=== PATIENT | male | born 1955 | race African-American/Black ===

== ENCOUNTER 2019-04-28 23:21 | Inpatient (IN) | payer OTHER ==
--- NOTE | 2019-04-29 02:17 | PDOC.FPRHP ---
- History of Present Illness Chief Complaint: Fever, Cough History of Present Illness: Pt is a 63 yo male with PMH significant for DM II, HTN, Hep C, Dementia, PEG tube placement who presented from the senior living for fever x 1 day and cough for a few days. Pt is unable to provide any information, AAO x 1. Discussing with the nurse it appears he had this cough which was mild in nature since admission to floor. He did have a temp of 102. Otherwise pt denies pain, shortness of breath. ED Course: In the ED pt was given levaquin, cefepime, NS, ibuprofen and tested for COVID-19 - Allergies/Adverse Reactions Allergies Allergy/AdvReac Type Severity Reaction Status Date / Time No Known Drug Allergies Allergy Unverified 12/31/12 09:19 - Home Medications Medication Instructions Recorded Confirmed Type Acetaminophen [Tylenol Elixir] 650 mg PER TUBE Q6HR PRN 04/29/19 04/29/19 History Phenytoin 125 mg PER TUBE DAILY 04/29/19 04/29/19 History Ranitidine HCl [Ranitidine HCl 150 mg PER TUBE BID 04/29/19 04/29/19 History Syrup] levETIRAcetam [Keppra Oral 750 mg PER TUBE DAILY 04/29/19 04/29/19 History Solution] metFORMIN HCl [Metformin HCl] 1,000 mg PER TUBE DAILY 04/29/19 04/29/19 History - History PMHx: DM II, HTN, HEP C, Dementia, Seizures, CAD, PEG tube placement PSHx: PEG tube FHx: unable to provide information Social: lives at a senior living - Review of Systems ROS unobtainable: due to mental status - Vital signs BP: 158/87 HR: 98 RR: 22 Tmax: 99.5 Pox: 97% on RA Wt:64 kg - Physical Exam Constitutional: NAD -Constitutional: awake HEENT: PERRLA, EOMI Neck: FROM, no JVD Chest: no-tender to palpation, no lesions Heart: RRR, normal S1/S2, no edema -Lungs: unable to perform a good exam due to lack of ability to take commands by pt Abdomen: soft, non-tender, no masses/distention -Musculoskeletal: contractures in LE Neurological: no focal deficit, CN II-XII intact Skin: capillary refill <2 seconds, no jaundice Heme/Lymphatic: no purpura, no petechia -Psychiatric: AAO X 1 - person FMR H&P: Results - Radiology Interpretation Chest x-ray Status: image reviewed by me, report reviewed by me Additional comment: LLL effusion and infiltration vs atelectasis FMR H&P: A/P - Problem List (1) DM II (diabetes mellitus, type II), controlled Current Visit: Yes Status: Acute Code(s): E11.9 - TYPE 2 DIABETES MELLITUS WITHOUT COMPLICATIONS (2) HTN (hypertension) Current Visit: Yes Status: Acute Code(s): I10 - ESSENTIAL (PRIMARY) HYPERTENSION (3) Hepatitis C Current Visit: Yes Status: Acute Code(s): B19.20 - UNSPECIFIED VIRAL HEPATITIS C WITHOUT HEPATIC COMA (4) Dementia Current Visit: Yes Status: Acute Code(s): F03.90 - UNSPECIFIED DEMENTIA WITHOUT BEHAVIORAL DISTURBANCE (5) Seizure Current Visit: Yes Status: Acute Code(s): R56.9 - UNSPECIFIED CONVULSIONS (6) CAD (coronary artery disease) Current Visit: Yes Status: Acute Code(s): I25.10 - ATHSCL HEART DISEASE OF [place] CORONARY ARTERY W/O ANG PCTRS (7) Pneumonia Current Visit: Yes Status: Acute Code(s): J18.9 - PNEUMONIA, UNSPECIFIED ORGANISM (8) Urinary tract infection Current Visit: Yes Status: Acute - Plan # LLL Pneumonia - RVP pending - COVID-19 pending - d/c cefepime, levaquin from ED; started ceftriaxone, azithromycin - procalcitonin pending - influenza negative - temp 102 - droplet precaution # Urinary tract infection - ceftriaxone # DM II - continue home meds # Epilepsy - continue home meds # PEG Tube - rehab technician consulted - takes glucerna 1.5 @ 70 ml/hr, 18 hr/day # CAD - stable # Dementia - AAO X 1, pt is full code # Hx of Hep C # HTN - stable VTE: Lovenox Code: Full Dispo: Admit to medical inpatient FMR H&P: Upper Level - Pertinent history 63 year old [place] patient presents with a one week history of cough and fever to 102F documented at facility yesterday. History obtained via [place] notes, ED physician, and floor nurse. Patient A&Ox1 and unable to provide history. Patient appears to be in no acute distress. - Pertinent findings General: Alert and oriented x1 to self. No acute distress. HEENT: Dry MM Card: RRR, no murmur Resp: Very difficult exam due to patient effort, no obvious rhonchi, rales Abdomen: Soft, non-tender, non-distended, PEG tube in LUQ appears clean and dry Ext: No cyanosis or edema - Plan Date/Time: 04/29/19 0217 I, Deepthi Mueller, have evaluated this patient and agree with findings/plan as outlined by sports intern resident. Pertinent changes/additions are listed here. Sepsis 2/2 suspected LLL PNA - Suspected based on CXR findings, cough, and fever - May represent CAP vs. aspiration PNA - Will attempt to contact NH for more information - Procal pending to further evaluate - Concern noted for COVID19 by ED physician, so testing performed - Contact precautions - RVP pending - Will start Azithromycin (04/28) and Ceftriaxone (04/28) for presumptive CAP; tailor antibiotics based on discussion with senior living. - Patient does have PEG tube, so is at increased risk of aspiration, particularly with dysphagia and dementia Possible UTI - UA appears contaminated, will await urine culture - Upon further review of past history, patient has history of previous pseudomonas UTI's (he is not currently being covered for this, will need to reconsider antibiotics pending discussion with NH) Dementia - A&O x1 to self Seizure disorder - Continue anticonvulsants Gastrostomy with PEG tube - Dietary consult for PEG tube feeds DVT PPX: Lovenox Code status: Full Dispo: Admit to medical. Anticipate LOS >48 hours. Addendum - Attending - Attending Attestation Date/Time: 04/29/19 1114 I personally evaluated the patient and discussed the management with Dr. Samson /Ami. I agree with the History, Examination, Assessment and Plan documented above with any addition or exceptions noted below.
[2019-04-29] MEDS ORDERED: Acetaminophen 650 MG/20.3 ML UDCUP PER TUBE PRN (05:35)
[2019-04-29] MEDS ORDERED: cefTRIAXone\\ROCEPHIN 1 GM in Sodium Chloride 0.9% 100 ML IVPB SCH (05:45)
[2019-04-29] MEDS ORDERED: Azithromycin 500 MG in Sodium Chloride 0.9% 250 ML 250 ML IVPB SCH ×2 (06:30→09:00)
[2019-04-29] MEDS: levETIRAcetam 500 mg/5 ml Oral Solution PER TUBE SCH (07:46)
[2019-04-29] MEDS: Enoxaparin Sodium 40 MG/0.4 ML SYRINGE SC SCH (07:47)
[2019-04-29] MEDS: metFORMIN 500 MG TAB PER TUBE SCH (07:47)
[2019-04-29] MEDS: Famotidine 20 MG TAB PER TUBE SCH ×2 (07:48→22:24)
[2019-04-29] MEDS ORDERED: Dextrose 5% in Water 1,000 ML IV PRN (08:56)
[2019-04-29] MEDS ORDERED: Dextrose 50% Abboject 50 ML SYRINGE SLOW IVP PRN (08:56)
[2019-04-29] MEDS ORDERED: FLU VACC QS2019-20(6MOS UP)/PF 60 MCG/0.5 ML SYRINGE IM ONE (09:00)
[2019-04-29] MEDS: Cefepime 2 GM in Sodium Chloride 0.9% 100 ML IVPB SCH ×2 (13:19→22:23)
[2019-04-29] MEDS: HumaLOG 300 UNITS/3 ML VIAL SC PRN (17:05)
[2019-04-30] MEDS: Cefepime 2 GM in Sodium Chloride 0.9% 100 ML IVPB SCH ×3 (05:08→21:45)
--- NOTE | 2019-04-30 06:01 | PDOC.FM ---
- Subjective Subjective: Doing well this morning, A/O x1 but at baseline. No concerns for this morning. States mild dysuria, no resp sxs, no cough, congestion, rhinorrhea, dyspnea. Occasional chills. Tolerating PO well. No acute events overnight per nursing staff. Spoke with PCP at senior living yesterday, pt had 2-3days of worsening mentation, fevers, chills, and decreased activity. No respiratory sxs. Has history of UTI's. Was sent to ED for fever and altered mentation. - Objective MAR Reviewed: Yes Vital Signs & Weight: Vital Signs (12 hours) Temp Pulse Resp BP Pulse Ox 04/30/19 05:38 96 04/29/19 20:00 96 04/29/19 19:04 98.2 F 77 16 95/62 96 Weight Admit Weight 66.423 kg Weight 66.423 kg I&O: 04/28/19 04/29/19 04/30/19 06:59 06:59 06:59 Intake Total 150 Balance 150 Result Diagrams: 04/30/19 08:26 04/30/19 08:26 Phys Exam - Physical Examination Constitutional: NAD (resting comfortably, interacting, converses but unable to answer all questions, A/O x1) HEENT: moist MMs Neck: supple Respiratory: no wheezing, no rales, no rhonchi, clear to auscultation bilateral Cardiovascular: RRR, no significant murmur, no rub Gastrointestinal: soft, non-tender, no distention, positive bowel sounds PEG tube in place, d/c/i Musculoskeletal: no edema Neurological: moves all 4 limbs Deviation from normal: A/O x1, baseline Dx/Plan (1) Urinary tract infection Status: Acute (2) CAD (coronary artery disease) Code(s): I25.10 - ATHSCL HEART DISEASE OF [place] CORONARY ARTERY W/O ANG PCTRS Status: Chronic (3) DM II (diabetes mellitus, type II), controlled Code(s): E11.9 - TYPE 2 DIABETES MELLITUS WITHOUT COMPLICATIONS Status: Chronic (4) Dementia Code(s): F03.90 - UNSPECIFIED DEMENTIA WITHOUT BEHAVIORAL DISTURBANCE Status: Chronic (5) HTN (hypertension) Code(s): I10 - ESSENTIAL (PRIMARY) HYPERTENSION Status: Chronic (6) Hepatitis C Code(s): B19.20 - UNSPECIFIED VIRAL HEPATITIS C WITHOUT HEPATIC COMA Status: Chronic - Plan Plan: 63yo AAM with h/o dementia, Hep C, previous drug abuse, and previous UTI presents for sepsis 2/2 suspected UTI #Sepsis 2/2 suspected UTI - Initial temp 102, tachy. Now VSS. - Initial presentation possible LLL PNA, CXR with effusion on L - spoke with [place] PCP, no respiratory sxs prior to presentation, h/o UTI, this morning, pt states no cough, congestion, dyspnea. VSS, no hypoxia. CXR without lobar consolidation - RVP negative, Flu neg, Procal 0.25 - Very low suspicion for COVID-19, testing pending, precations until results return - UA dirty, previous history of pseudomonas resistant to quinolones UTI. Will cont Cefepime Day 2 and await UCx and BCx - s/p Azithro and Rocephin x1d for CAP - AM labs pending #DM II - continue home meds - hyperglycemic protocol, ACHS accuchecks #Epilepsy - continue home meds #PEG Tube - percussion instrument repairer consulted - takes glucerna 1.5 @ 70 ml/hr, 18 hr/day #CAD - stable #Dementia - AAO X 1, this is baseline per [place], pt is full code #Hx of Hep C and IV drug abuse #HTN - stable PCP: [facility]up[facility] Afshan Code: Full VTE: Lovenox Diet: Tube feeds IVF: SL Dispo: Admitted to medical inpatient for sepsis 2/2 suspected UTI. Low suspicion for COVID 19 or respiratory cause. Awaiting cultures and labs. Anticipate LOS >48hrs and dispo back to [place] when appropriate. Addendum - Attending - Attending Attestation Date/Time: 04/30/19 9820 I personally evaluated the patient and discussed the management with Dr. Gonzáles. I agree with the History, Examination, Assessment and Plan documented above with any addition or exceptions noted below.
[2019-04-30] MEDS: HumaLOG 300 UNITS/3 ML VIAL SC PRN ×4 (07:22→23:05)
[2019-04-30] MEDS: Enoxaparin Sodium 40 MG/0.4 ML SYRINGE SC SCH (07:22)
[2019-04-30] MEDS: Famotidine 20 MG TAB PER TUBE SCH ×2 (07:23→21:45)
[2019-04-30] MEDS: metFORMIN 500 MG TAB PER TUBE SCH ×2 (07:23→15:25)
[2019-04-30 08:43] LABS: #Lymphocytes 1.3 thou/uL (1.20-3.40); #Monocytes 0.6 thou/uL (0.11-0.59); #Neutrophils 4.8 thou/uL (1.40-6.50); %Basophils 0.5 % (0.0-1.0); %Eosinophils 0.7 % (0.0-10.0); %Lymphocytes 19.4 % (21.0-51.0); %Monocytes 8.5 % (0.0-10.0); %Neutrophils 70.9 % (42.0-75.0); Hemoglobin 12.1 g/dL (14.0-18.0); Mean Corpuscular HGB CONC 32.6 g/dL (32.0-36.0); Mean Corpuscular Hemoglobin 30.4 pg (27.0-31.0); Mean Corpuscular Volume 93.2 fL (78.0-98.0); Mean Platelet Volume 10.7 fL (7.4-10.4); Platelet Count 146 thou/uL (130-400); RBC Distribution Width 11.7 % (11.5-14.5); Red Blood Cell (RBC) Count 3.98 mill/uL (4.70-6.10); White Blood Cell (WBC) Count 6.7 thou/uL (4.8-10.8)
[2019-04-30 08:51] LABS: Anion Gap 15 mmol/L (10-20); BUN (Urea Nitrogen) 12 mg/dL (8.4-25.7); Calc. Creatinine Clearance 83 mL/min (70-130); Calcium 9.3 mg/dL (7.8-10.44); Carbon Dioxide 24 mmol/L (23-31); Chloride 98 mmol/L (98-107); Estimated GFR-MDRD Greater than 90; Glucose 344 mg/dL (80-115); Potassium 4.1 mmol/L (3.5-5.1); Sodium 133 mmol/L (136-145)
[2019-04-30] MEDS: levETIRAcetam 500 mg/5 ml Oral Solution PER TUBE SCH (10:10)
[2019-05-01] MEDS: Cefepime 2 GM in Sodium Chloride 0.9% 100 ML IVPB SCH (05:39)
--- NOTE | 2019-05-01 06:22 | PDOC.FM ---
- Subjective Subjective: Doing well this morning, appears at baseline mentation. Lost IV access overnight and unable to re-establish peripheral IV access. No cough, congestion , fever/chills. A/O x 1, at baseline. Answers some but not all questions appropriately. - Objective MAR Reviewed: Yes Vital Signs & Weight: Vital Signs (12 hours) Temp Pulse Resp BP Pulse Ox 04/30/19 20:00 99.3 F 96 18 138/87 95 Weight Admit Weight 66.423 kg Weight 66.423 kg I&O: 04/29/19 04/30/19 05/01/19 06:59 06:59 06:59 Intake Total 150 150 Balance 150 150 Result Diagrams: 04/30/19 08:26 04/30/19 08:26 Phys Exam - Physical Examination Constitutional: NAD (resting comfortably) HEENT: moist MMs Neck: supple Respiratory: no wheezing, no rales, no rhonchi, clear to auscultation bilateral Cardiovascular: RRR, no significant murmur, no rub Gastrointestinal: soft, non-tender, no distention, positive bowel sounds Peg tube in place, clean and dry Musculoskeletal: no edema Neurological: moves all 4 limbs Dx/Plan (1) Urinary tract infection Status: Acute (2) CAD (coronary artery disease) Code(s): I25.10 - ATHSCL HEART DISEASE OF [place] CORONARY ARTERY W/O ANG PCTRS Status: Chronic (3) DM II (diabetes mellitus, type II), controlled Code(s): E11.9 - TYPE 2 DIABETES MELLITUS WITHOUT COMPLICATIONS Status: Chronic (4) Dementia Code(s): F03.90 - UNSPECIFIED DEMENTIA WITHOUT BEHAVIORAL DISTURBANCE Status: Chronic (5) HTN (hypertension) Code(s): I10 - ESSENTIAL (PRIMARY) HYPERTENSION Status: Chronic (6) Hepatitis C Code(s): B19.20 - UNSPECIFIED VIRAL HEPATITIS C WITHOUT HEPATIC COMA Status: Chronic - Plan Plan: 63yo AAM with h/o dementia, Hep C, previous drug abuse, and previous UTI presents for sepsis 2/2 suspected UTI #Sepsis 2/2 complicated UTI - Initial temp 102, tachy. Now VSS. - Initial presentation possible LLL PNA, CXR with effusion on L - spoke with NH PCP, no respiratory sxs prior to presentation, h/o UTI, this morning, pt states no cough, congestion, dyspnea. VSS, no hypoxia. CXR without lobar consolidation. Low suspicion for respiratory illness - s/p Azithro and Rocephin x1d for CAP - RVP negative, Flu neg, Procal 0.25 - Very low suspicion for COVID-19, testing pending, precations until results return - UA dirty, previous history of pseudomonas resistant to quinolones UTI. Will cont Cefepime Day 3 - UCx GNR, BCx NGTD - Will likely need abx x10d for complicated UTI, plan on mid-term IV access for IV abx. #DM II - continue home meds - hyperglycemic protocol, ACHS accuchecks - Hyperglycemic, SS, check A1C and consider basal insulin #Epilepsy - continue home meds #PEG Tube - coin machine operator consulted - takes glucerna 1.5 @ 70 ml/hr, 18 hr/day #CAD - stable #Dementia - AAO X 1, this is baseline per [place], pt is full code #Hx of Hep C and IV drug abuse #HTN - stable PCP: [facility] Afshan Code: Full VTE: Lovenox Diet: Tube feeds IVF: SL Dispo: Admitted to medical inpatient for sepsis 2/2 suspected UTI. Low suspicion for COVID 19 or respiratory cause. Awaiting cultures and labs. Anticipate LOS >48hrs and dispo back to [place] when appropriate. Addendum - Attending - Attending Attestation Date/Time: 05/01/19 1051 I personally evaluated the patient and discussed the management with Dr. Gonzáles. I agree with the History, Examination, Assessment and Plan documented above with any addition or exceptions noted below.
[2019-05-01 07:20] LABS: Hemoglobin A1c 7.4 % (4.0-6.0)
[2019-05-01] MEDS: Famotidine 20 MG TAB PER TUBE SCH ×2 (09:13→21:17)
[2019-05-01] MEDS: Enoxaparin Sodium 40 MG/0.4 ML SYRINGE SC SCH (09:13)
[2019-05-01] MEDS: metFORMIN 500 MG TAB PER TUBE SCH ×2 (09:13→17:28)
[2019-05-01] MEDS ORDERED: Fosfomycin 3 GM/Packet PO SCH (10:00)
[2019-05-01] MEDS: levETIRAcetam 500 mg/5 ml Oral Solution PER TUBE SCH (12:38)
[2019-05-01] MEDS: HumaLOG 300 UNITS/3 ML VIAL SC PRN ×4 (12:53→21:17)
[2019-05-01] MEDS ORDERED: Insulin Glargine 20 UNITS in Pre-Filled Syringe SC SCH (15:15)
--- NOTE | 2019-05-02 06:21 | PDOC.FM ---
- Subjective Subjective: Doing well this morning, no acute events overnight. A/O x1, appears at baseline mentation. Unable to answer specific questions but appears comfortable. No fever /chills, CP, SOB. Tolerating tube feeds well. - Objective MAR Reviewed: Yes Vital Signs & Weight: Vital Signs (12 hours) Temp Pulse Resp BP Pulse Ox 05/01/19 20:00 97 05/01/19 19:43 96.7 F L 95 16 169/92 H 97 Weight Admit Weight 66.423 kg Weight 66.423 kg I&O: 04/30/19 05/01/19 05/02/19 06:59 06:59 06:59 Intake Total 150 150 150 Balance 150 150 150 Result Diagrams: 04/30/19 08:26 04/30/19 08:26 Phys Exam - Physical Examination Constitutional: NAD (resting comfortably, A/O x1 at baseline) HEENT: moist MMs Neck: supple Respiratory: no wheezing, no rales, no rhonchi, clear to auscultation bilateral Cardiovascular: RRR, no significant murmur, no rub Gastrointestinal: soft, no distention, positive bowel sounds Tolerating peg tube feeds well, site clean and dry Musculoskeletal: no edema Dx/Plan (1) Urinary tract infection Status: Acute (2) CAD (coronary artery disease) Code(s): I25.10 - ATHSCL HEART DISEASE OF [place] CORONARY ARTERY W/O ANG PCTRS Status: Chronic (3) DM II (diabetes mellitus, type II), controlled Code(s): E11.9 - TYPE 2 DIABETES MELLITUS WITHOUT COMPLICATIONS Status: Chronic (4) Dementia Code(s): F03.90 - UNSPECIFIED DEMENTIA WITHOUT BEHAVIORAL DISTURBANCE Status: Chronic (5) HTN (hypertension) Code(s): I10 - ESSENTIAL (PRIMARY) HYPERTENSION Status: Chronic (6) Hepatitis C Code(s): B19.20 - UNSPECIFIED VIRAL HEPATITIS C WITHOUT HEPATIC COMA Status: Chronic - Plan Plan: 63yo AAM with h/o dementia, Hep C, previous drug abuse, and previous UTI presents for sepsis 2/2 suspected UTI #Sepsis 2/2 complicated UTI - Initial temp 102, tachy. Now VSS. - Initial presentation possible LLL PNA, CXR with effusion on L - spoke with NH PCP, no respiratory sxs prior to presentation, h/o UTI, pt states no cough, congestion, dyspnea. VSS, no hypoxia. CXR without lobar consolidation. Low suspicion for respiratory illness - s/p Azithro and Rocephin x1d for CAP - RVP negative, Flu neg, Procal 0.25 - Very low suspicion for COVID-19, testing negative. - UA dirty, previous history of pseudomonas resistant to quinolones UTI. s/p Cefepime x3d. Now on fosfomycin x3 doses q72hrs, 2 additional doses - UCx flouroquinoline resistance Pseudomonas, BCx NGTD #DM II - continue home meds - hyperglycemic protocol, ACHS accuchecks - Hyperglycemic, SS, A1C 7 - Records reviewed, and pt on basal insulin at long term, will cont #Epilepsy - continue home meds #PEG Tube - mobile device engineer consulted, apprec recs - takes glucerna 1.5 @ 70 ml/hr, 18 hr/day #CAD - stable #Dementia - AAO X 1, this is baseline per CT, pt is full code #Hx of Hep C and IV drug abuse #HTN - stable PCP: Krup[facility] Afshan Code: Full VTE: Lovenox Diet: Tube feeds IVF: SL Dispo: Admitted to medical inpatient for sepsis 2/2 UTI. COVID 19 negative. Medically stable and ready for discharge back to [place] to finish abx regime. Addendum - Attending - Attending Attestation Date/Time: 05/02/19 6566 I personally evaluated the patient and discussed the management with Dr. Gonzáles. I agree with the History, Examination, Assessment and Plan documented above with any addition or exceptions noted below.
[2019-05-02] MEDS: HumaLOG 300 UNITS/3 ML VIAL SC PRN ×2 (06:40→12:35)
[2019-05-02 07:38] VITALS: TEMP 98.4
[2019-05-02] MEDS ORDERED: hydrALAZINE 20 MG/ML VIAL SLOW IVP PRN (08:38)
[2019-05-02] MEDS ORDERED: hydrALAZINE 20 MG/ML VIAL SLOW IVP SCH (08:45)
[2019-05-02] MEDS: metFORMIN 500 MG TAB PER TUBE SCH (08:54)
[2019-05-02] MEDS: Famotidine 20 MG TAB PER TUBE SCH (08:54)
[2019-05-02] MEDS: Enoxaparin Sodium 40 MG/0.4 ML SYRINGE SC SCH (08:54)
[2019-05-02] MEDS: levETIRAcetam 500 mg/5 ml Oral Solution PER TUBE SCH (08:57)
[2019-05-02 11:32] VITALS: BP 159/70
--- NOTE | 2019-05-02 12:31 | PQF ---
DATE: 05-02-19 ATTN: DR. ALANNA LOBO Please exercise your independent, professional judgment in responding to the clarification form. Clinical indicators are provided on the bottom of this form for your review Please check appropriate box(s) to clarify if the following diagnosis has been ruled in or ruled out: ASPIRATION PNEUMONIA [ ] Ruled in diagnosis [ ] Continue to treat [ ] Resolved [ x ] Ruled out diagnosis [ ] Other diagnosis [ ] Unable to determine In addition, please specify: Present on Admission (POA): [ x ] Yes - on ddx but ruled out [ ] No [ ] Unable to determine For continuity of documentation, please document condition throughout progress notes and discharge summary. Thank You. CLINICAL INDICATORS - SIGNS / SYMPTOMS / LABS / RESULTS AND LOCATION IN MR: H&P 04-29-19: SEPSIS 2/2 SUSPECTED LLL PNA, MAY REPRESENT CAP VS ASPIRATION PNA H&P 04-29-19: FROM NH, PATIENT DOES HAVE PEG TUBE, SO INCREASED RISK OF ASPIRATION, PARTICULARLY WITH DYSPHAGIA AND DEMENTIA RISK FACTORS / RESULTS AND LOCATION IN MR: H&P 04-29-19: FROM NH, PATIENT DOES HAVE PEG TUBE, SO INCREASED RISK OF ASPIRATION, PARTICULARLY WITH DYSPHAGIA AND DEMENTIA TREATMENTS / RESULTS AND LOCATION IN MR: H&P 04-29-19: WILL START AZITHROMYCIN AND CEFTRIAXONE FOR PRESUMPTIVE CAP, TAILOR BASED ON DISCUSSION WITH NH, PATIENT DOES HAVE PEG TUBE, SO INCREASED RISK OF ASPIRATION, PARTICULARLY WITH DYSPHAGIA AND DEMENTIA (This form is maintained as a part of the permanent medical record) 2014 [employer]. All Rights Reserved PUNEET [email or web address] Office: [phone] NATALIA
[2019-05-02] MEDS ORDERED: Pancrelipase DR 12000 1 CAP PER TUBE PRN ×3 (13:54→14:00)
[2019-05-02] MEDS ORDERED: Sodium Bicarbonate Tab 325 MG TAB PER TUBE PRN (13:55)
--- NOTE | 2019-05-02 14:12 | DIS ---
DATE OF ADMISSION: 04/29/2019 DATE OF DISCHARGE: 05/02/2019 RESIDENT: Mansoor Gonzáles MD. ADMITTING ATTENDING: Alec Feldman MD DISCHARGE ATTENDING: Alec Feldman MD. CONSULTS: None. PROCEDURES: 1. Urine culture demonstrating fluoroquinolone resistant Pseudomonas. 2. Blood culture no growth to date. 3. COVID-19 testing negative. 4. Chest x-ray on 04/28/2019, demonstrating left effusion and left basilar atelectasis/infiltrate. PRIMARY DIAGNOSES: Sepsis secondary to complicated urinary tract infection. SECONDARY DIAGNOSES: 1. Insulin-dependent type 2 diabetic. 2. Epilepsy. 3. PEG tube dependent feeding. 4. Coronary artery disease. 5. Dementia. A and O x1 at baseline. 6. History of hep C and IV drug abuse. 7. Hypertension. DISCHARGE MEDICATIONS: 1. Tylenol 650 mg per tube q.6 hours p.r.n. 2. Ranitidine 150 mg per tube b.i.d. 3. Metformin 1 g per tube b.i.d. 4. Fosfomycin 3 g p.o. q.72 hours. Next dose on 05/04/2019, and final dose on 05/07/2019. 5. Phenytoin 125 mg per tube daily. 6. Keppra 750 mg per tube daily. 7. Insulin regimen as previously used at [facility]. HISTORY OF PRESENT ILLNESS AND HOSPITAL COURSE: The patient is a 63-year-old male with past medical history of insulin type 2 diabetes, hypertension, hep C, dementia, and PEG tube placement, who presented from the [facility] for fever x1 day. The patient is A and O x1 at baseline. The patient had a temperature of 102. Otherwise, denies any shortness of breath or chest pain. Per nursing report, the patient may have been having a cough previously. In the emergency department, he was given Levaquin, cefepime, normal saline, ibuprofen and tested for COVID-19. He was admitted to the floor for further evaluation and management. The patient initially met sepsis criteria with a temperature of 102 and tachycardia. His vital signs normalized with the addition of antibiotics and IV fluid hydration. The patient's initial x-ray showed a left lower lobe effusion, possible pneumonia, and report of patient with cough, thus the patient was tested for COVID-19 and placed on the appropriate precautions. Speaking with the [facility] primary care provider, the patient has had no respiratory symptoms prior to presentation. No cough. No congestion, shortness of breath, or hypoxia. The patient had been less interactive and spiking fevers and thus warranted his presentation to the emergency management. The patient has had a history of multiple UTIs in the past of Pseudomonas, fluoroquinolone resistant. The patient had a respiratory viral panel that was negative. Flu is negative. Procalcitonin was 0.25 and ultimately, the COVID-19 testing returned negative. His UA was very dirty and urine culture resulted in fluoroquinolone resistant Pseudomonas. The patient was given cefepime x3 days and transitioned to fosfomycin x3 additional doses q.72 hours with the final dose is due on 05/03 and 05/06. Blood cultures were no growth to date. At the time of discharge, the patient was doing very well and back to his baseline mentation. Discharge plan was discussed with [facility] PCP. The patient is also an insulin-dependent type 2 diabetic. Initial med reconciliation from the [facility] did not include his insulin and thus, the patient was placed on sliding scale. The patient was transitioned back to his home insulin regimen at the time of discharge. The patient may need continued titration of this as an outpatient. The patient also had episodes of hypertension, it is unclear if he was on hypertensive medications at the [facility]. If so, these will need to be restarted and if not, the patient may warrant hypertensive management. The patient was continued on his PEG tube feeds and his epilepsy medicine was continued. At the time of discharge, the patient's vital signs were stable. He is doing very well and eager to go back to the [facility]. A and O x1 at baseline mentation. DISCHARGE PLAN: Discussed with nursing and PCP and nursing orders were given. The patient was then discharged back to [facility]. DISPOSITION: Stable. DISCHARGE INSTRUCTIONS: 1. Location: [facility]. 2. Diet: PEG tube feeds. 3. Activity: As tolerated. 4. Followup: The patient to follow up with primary care physician at the [facility]. Job ID: [id number]
--- NOTE | 2019-05-02 20:26 | PRG ---
DATE OF SERVICE: 05/02/2019 REASON FOR EVALUATION: Malfunctioning PEG tube. SUBJECTIVE: Per the discussion with the patient's nurse and primary treating team, the patient had a PEG tube placed in approximately 2012 due to moderate protein calorie malnutrition and the patient's dementia. Per nursing staff, the PEG tube was clogged and no longer allowing any influx of tube feeds. Upon evaluation of the PEG tube itself, it appeared clean, dry, and intact with no evidence of purulence or skin breakdown at the ostomy site itself. Tube feed material was seen within the tube, caking inside of the tube. OBJECTIVE: Given the clogged tubes and physical evaluation with no evidence of infection, purulence, or breakdown of the tubing itself, a replacement tube was then . The internal balloon of the existing tube was then deflated and removed through the stomal tract without difficulty or bleeding. The replacement tube (Kangaroo 20-Turkish 20 mL balloon) was then lubricated and advanced through the stomal site into the stomach. The internal balloon was then inflated to 20 mL with water. With the tube pulled back, good resistance achieved. The external bumper was then tightened to approximately 1 cm off the skin, and the procedure was terminated. IMPRESSION: Successful replacement of a Kangaroo 20-Turkish percutaneous gastrostomy tube. RECOMMENDATIONS: 1. The new PEG tube can be used immediately. 2. We would comply with standard PEG tube care (rotating the PEG tube itself 720 degrees daily, flush the PEG tube with 60 mL of water both before and after bolus feeds, would refrain from placement of any bandages between the external bumper and the skin, and would avoid tying the tube itself into any knots). 3. The patient can be [facility] back to [facility] care. We will sign off at this time. Please call with any questions. Job ID: [id number]
== END 2019-05-02 17:55 | DRG 872 ==
LOC: ERS 23:21 → T4-A 04-29 00:04
PROVIDERS: ADMIT Family Medicine; ATTEND Family Medicine
PROC: 0D20XUZ Change Feeding Device in Upper Intestinal Tract, External Approach (ICD-10-PCS; principal; 2019-05-02)
DX: A41.9 Sepsis, unspecified organism (principal); N39.0 Urinary tract infection, site not specified; K94.23 Gastrostomy malfunction; F03.90 Unspecified dementia, unspecified severity, without behavioral disturbance, psychotic disturbance, mood disturbance, and anxiety; G40.909 Epilepsy, unspecified, not intractable, without status epilepticus; I25.10 Atherosclerotic heart disease of native coronary artery without angina pectoris; I10 Essential (primary) hypertension; E11.9 Type 2 diabetes mellitus without complications; B19.20 Unspecified viral hepatitis C without hepatic coma
CPT/HCPCS: 36415; 36416; 80048; 83036; 84145; 85025; 87633; 99284; J0360; J0692; J0696; J1650; J1815; J3490; U0001